=== PATIENT | female | born 1965 | race Caucasian/White ===

== ENCOUNTER 2024-02-15 18:51 | Emergency (ER) | payer OTHER ==
[~2024-02-15] VITALS: Ht 152.4 cm; Wt 100.0 kg
[~2024-02-15 18:51] MED LIST: AMITRIPTYLINE100 MG PO; HYDRALAZINE HCL50 MG PO; MOTRIN IB200 MG PO; NORCO 5-325 TA1 EACH PO; PRAZOSIN HCL5 MG PO; ULTRAM50 MG PO
[2024-02-15] MEDS ORDERED: BUSPIRONE HCL15 MG PO (19:14)
[2024-02-15] MEDS ORDERED: ATORVASTATIN CA40 MG PO (19:14)
[2024-02-15] MEDS ORDERED: TRULICITY0.75 MG/0. SUB-Q (19:15)
[2024-02-15] MEDS ORDERED: HYDROXYZINE PAM50 MG PO (19:15)
[2024-02-15] MEDS ORDERED: DESVENLAFAXINE50 M3 PO (19:15)
[2024-02-15] MEDS ORDERED: VITAMIN D21250 MCG PO (19:15)
[2024-02-15 20:44] VITALS: BP 100/73
== END 2024-02-15 20:44 | disposition home or self-care (01) ==
LOC: ED 18:51
DX: S50.02XA Contusion of left elbow, initial encounter (principal); E11.9 Type 2 diabetes mellitus without complications; E78.00 Pure hypercholesterolemia, unspecified; W22.8XXA Striking against or struck by other objects, initial encounter; Y93.89 Activity, other specified; Z79.899 Other long term (current) drug therapy; Z79.85 Long-term (current) use of injectable non-insulin antidiabetic drugs
CPT/HCPCS: 73080; 99283-25

== ENCOUNTER 2024-11-05 05:50 | Day surgery (SDC) | payer OTHER ==
[2024-11-03 13:26] VITALS: BP 111/71
[~2024-11-05] VITALS: Ht 152.4 cm; Wt 98.2 kg
[~2024-11-05 05:50] MED LIST changes: +ATORVASTATIN CA40 MG PO; +BUSPIRONE HCL15 MG PO; +DESVENLAFAXINE50 M3 PO; +HYDROXYZINE PAM50 MG PO; +MIDAZOLAM HCL 5 MG/5 ML VIAL IV PRN; +TRULICITY0.75 MG/0. SUB-Q; +VITAMIN D21250 MCG PO; +fentaNYL citrate 100 MCG/2 ML VIAL IV PRN
[2024-11-05 06:15] VITALS: BP 105/74
[2024-11-05] MEDS ORDERED: LACTATED RINGER'S 1,000 ML IV SCH (07:00)
[2024-11-05] MEDS ORDERED: IBLOOD GLUCOSE TEST STRIP 1 EA TEST VI PRN (07:00)
[2024-11-05] MEDS ORDERED: LIDOCAINE HCL 1% 5 ML SDV INJ ONE (07:00)
[2024-11-05] MEDS ORDERED: propofoL 200 MG/20 ML VIAL ONE (07:17)
[2024-11-05] MEDS ORDERED: LIDOCAINE HCL 2% 5 ML SDV ONE (07:17)
--- NOTE | 2024-11-05 08:01 | NUR ---
11/05/24 0801 Valerie Valenzuela PATIENT WAKES, SUDDENLY. SHE FOLLOWS INSTRUCTIONS TO LIFT HER HEAD FROM HER PILLOW. OXYGEN SATURATION REMAINS 100% ON 6L VIA MASK. OXYGEN IS REMOVED AT THIS TIME. PATIENT DENIES PAIN.
[2024-11-05 08:23] VITALS: BP 120/71
--- NOTE | 2024-11-05 09:12 | OR ---
[facility] [address], [place] [address] Signed DATE OF OPERATION: 11/05/2024 SURGEON: Darrian Marion MD PREOPERATIVE DIAGNOSIS: Screening. POSTOPERATIVE DIAGNOSIS: Minimal to moderate internal hemorrhoids. PROCEDURE: Colonoscopy without biopsies. ESTIMATED BLOOD LOSS: None. INDICATIONS: Kady is a 59-year-old obese diabetic female, asked to see me for her initial screening colonoscopy. She has no lower GI complaints. There is no family history of colon cancer or polyps. She came today with her two grandchildren to the office. I gave them a pamphlet on colonoscopy. She understands the nature of the test. There is risk including, but not limited to gas bloating, crampy abdominal pain, bleeding, perforation requiring surgery, and missed diagnosis. We also reviewed the written instructions for the bowel prep. Because of her single kidney we did have her use a commercial one gallon bowel prep of polyethylene glycol. That worked out moderately. She still had a few areas of liquid particulate stool matter. Most of that was suctioned out. In addition, she has an extensive past medical history including her severe sleep apnea, PTSD, TIA and so forth. Therefore, we asked for monitored anesthesia care propofol infusion. That worked out well. She did require some preoperative blood work and an EKG. Of course, an adult person has to take her home afterwards. She had expressed understanding and wished to proceed. DESCRIPTION OF PROCEDURE: Kady was taken into the endoscopy suite, placed in the left lateral decubitus position. 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 A digital rectal exam was performed. This was unremarkable. She had good sphincter tone. There were no masses. No external hemorrhoids. The adult colonoscope was introduced and advanced under direct visualization of camera without difficulty. We paused in several areas just to suction out the liquid particulate stool matter. We eventually made our way up to the cecum. We could easily see the appendiceal orifice. Electronically Signed By: DARRIAN MARION MD 11/05/24 0912 PATIENT NAME: KADY BEYER OPERATIVE REPORT DATE OF : 63 REPORT #: [id number] PHYSICIAN: DARRIAN MARION MD PCP: SAHIL MCCARTHY MD REPORT IS CONFIDENTIAL AND NOT TO BE RELEASED WITHOUT AUTHORIZATION [facility] [address], [place] [address] Signed We could also see the ileocecal valve. The scope was then slowly withdrawn. There was no pathology throughout her entire colon. Once in the rectum, the scope was retroflexed and she has just some minimal to moderate standard internal hemorrhoid columns. After this, the gas was suctioned out, colonoscope removed. Kady tolerated the procedure quite well. RECOMMENDATIONS: Kady can follow up in 10 years for repeat screening colonoscopy. She should always use a full gallon of polyethylene glycol for prep with respect to her single kidney. She might consider adding some Dulcolax as well. Darrian Marion MD ALB/MODL /[id number] cc: MD Darrian Reynolds MD Patient Chart Copies: DARRIAN MARION MD ~ Electronically Signed By: DARRIAN MARION MD 11/05/24911 PATIENT NAME: KADY BEYER OPERATIVE REPORT DATE OF : 63 REPORT #: [id number] PHYSICIAN: DARRIAN MARION MD PCP: SAHIL MCCARTHY MD REPORT IS CONFIDENTIAL AND NOT TO BE RELEASED WITHOUT AUTHORIZATION
== END 2024-11-05 08:30 | disposition home or self-care (01) ==
LOC: DS 05:50
PROVIDERS: ATTEND Colon & Rectal Surgery
PROC: 0DJD8ZZ Inspection of Lower Intestinal Tract, Via Natural or Artificial Opening Endoscopic (ICD-10-PCS; principal; 2024-11-05 07:30)
DX: Z12.11 Encounter for screening for malignant neoplasm of colon (principal); K64.8 Other hemorrhoids; E11.9 Type 2 diabetes mellitus without complications; G47.33 Obstructive sleep apnea (adult) (pediatric); G35 Multiple sclerosis; E78.2 Mixed hyperlipidemia; I10 Essential (primary) hypertension; G89.29 Other chronic pain; M79.2 Neuralgia and neuritis, unspecified; K76.0 Fatty (change of) liver, not elsewhere classified; M79.7 Fibromyalgia; E66.9 Obesity, unspecified; Z68.41 Body mass index [BMI] 40.0-44.9, adult; Z85.528 Personal history of other malignant neoplasm of kidney; Z86.73 Personal history of transient ischemic attack (TIA), and cerebral infarction without residual deficits; Z79.84 Long term (current) use of oral hypoglycemic drugs; Z79.85 Long-term (current) use of injectable non-insulin antidiabetic drugs; Z79.899 Other long term (current) drug therapy; Z90.5 Acquired absence of kidney
CPT/HCPCS: J2003; J2704; J7121